=== PATIENT | male | born 1945 | race Two or more races ===

== ENCOUNTER → 2018-07-17 | Outpatient (CLI) | payer OTHER ==
[~2018-07-17] MED LIST: COZAAR100 MG; MEDROLPACK PO; NORFLEX100MG PO
== END | disposition home or self-care (01) ==
LOC: NUCLEAR 10:00
DX: I87.2 Venous insufficiency (chronic) (peripheral) (principal)

== ENCOUNTER → 2020-02-25 | Outpatient (CLI) | payer OTHER | END | disposition home or self-care (01) | LOC: RAD 12:51 | PROVIDERS: ATTEND Family Medicine | DX: M25.421 Effusion, right elbow (principal) ==

== ENCOUNTER 2021-10-15 13:12 | Outpatient (CLI) | payer OTHER | END 2021-10-15 13:16 | disposition home or self-care (01) | LOC: SONOGRAMA 13:12 | PROVIDERS: ATTEND Internal Medicine | DX: E03.9 Hypothyroidism, unspecified (principal) ==

== ENCOUNTER 2023-06-20 09:11 | Outpatient (CLI) | payer OTHER | END 2023-06-20 09:20 | disposition home or self-care (01) | LOC: RAD 09:11 | DX: M72.2 Plantar fascial fibromatosis (principal); M77.31 Calcaneal spur, right foot ==

== ENCOUNTER 2023-07-13 11:18 | Emergency (ER) | payer OTHER ==
[~2023-07-13] VITALS: Ht 172.7 cm; Wt 74.8 kg
== END 2023-07-13 14:13 | disposition home or self-care (01) ==
LOC: ER 11:19
DX: S81.022A Laceration with foreign body, left knee, initial encounter (principal); W01.0XXA Fall on same level from slipping, tripping and stumbling without subsequent striking against object, initial encounter; Y93.89 Activity, other specified; Y92.89 Other specified places as the place of occurrence of the external cause; I10 Essential (primary) hypertension

== ENCOUNTER 2023-10-06 07:55 | Outpatient (CLI) | payer OTHER | END 2023-10-06 07:57 | disposition home or self-care (01) | LOC: NUCLEAR 07:55 | PROVIDERS: ATTEND Internal Medicine | DX: I20.9 Angina pectoris, unspecified (principal) | CPT/HCPCS: 78452; 93017; A9500 ==

== ENCOUNTER 2023-10-09 07:32 | Outpatient (CLI) | payer OTHER | END 2023-10-09 07:33 | disposition home or self-care (01) | LOC: NUCLEAR 07:32 | PROVIDERS: ATTEND Internal Medicine | DX: R55 Syncope and collapse (principal) ==

== ENCOUNTER 2023-10-30 07:47 | Outpatient (CLI) | payer OTHER | END 2023-10-30 07:51 | disposition home or self-care (01) | LOC: NUCLEAR 07:47 | PROVIDERS: ATTEND Internal Medicine | DX: I73.9 Peripheral vascular disease, unspecified (principal) ==

== ENCOUNTER 2024-04-29 12:47 | Outpatient (CLI) | payer OTHER | END 2024-04-29 12:54 | disposition home or self-care (01) | LOC: RAD 12:47 | DX: M19.012 Primary osteoarthritis, left shoulder (principal) ==

== ENCOUNTER 2025-02-28 07:23 | Outpatient (CLI) | payer OTHER | END 2025-02-28 07:25 | disposition home or self-care (01) | LOC: RAD 07:23 | PROVIDERS: ATTEND Specialist | DX: M47.812 Spondylosis without myelopathy or radiculopathy, cervical region (principal); R22.1 Localized swelling, mass and lump, neck ==